=== PATIENT | female | born 1985 | race Caucasian/White ===

== ENCOUNTER → 2016-05-12 | Outpatient (CLI) | payer BC | LOC: MW.CHOBGYN 17:03 | PROVIDERS: ATTEND Obstetrics & Gynecology | DX: Z34.90 Encounter for supervision of normal pregnancy, unspecified, unspecified trimester (principal) | CPT/HCPCS: 87081 ==

== ENCOUNTER 2016-06-06 12:00 | Inpatient (IN) | payer BC ==
[2016-06-08] MEDS ORDERED: Sodium Chloride 0.9% 2.5 ML Syringe FLUSH PRN (05:53)
[2016-06-08] MEDS ORDERED: Sodium Chloride 0.9% 10 ML Syringe FLUSH PRN (05:53)
[2016-06-08] MEDS ORDERED: ceFAZolin 1 GM in Premix Bag 1 BAG IV ONE (05:53)
[2016-06-08] MEDS ORDERED: Lactated Ringers 1,000 ML IV SCH (06:00)
[2016-06-08] MEDS ORDERED: Citric Acid/Sodium Citrate Solution 30 ML Cup PO SCH (06:00)
[2016-06-08] MEDS ORDERED: Oxytocin 10 Units/1 ML SDV ONE ×3 (07:34→09:01)
[2016-06-08] MEDS ORDERED: Morphine PF 10 MG/10 ML SDV ONE (07:34)
--- NOTE | 2016-06-08 07:56 | PCM.PREANE ---
Preanesthetic Assessment - Procedure Proposed Procedure: repeat csection with SAB - Anesthesia/Transfusion/Family Hx Anesthesia History: Prior Anesthesia Without Reaction Family History of Anesthesia Reaction: No Transfusion History: No Prior Transfusion(s) - Review of Systems Other: Reports: None - Physical Assessment NPO Status Date: 06/07/00 NPO Status Time: 18:30 Pulse: 74 Respiratory Rate: 14 Blood Pressure: 115/82 Temperature: 97.8 C Height: 5 ft 1 in Weight: 57.606 kg ASA Class: 2 Mental Status: Alert & Oriented x3 Airway Class: Mallampati = 1 Dentition: Reports: Normal Dentition ROM/Head Extension: Full - Lab Values: Laboratory Last Values WBC 5.86 K/uL (4.0-11.0) 06/08/16 06:36 RBC 3.96 M/uL (4.30-5.90) L 06/08/16 06:36 Hgb 12.6 g/dL (12.0-16.0) 06/08/16 06:36 Hct 37.0 % (36.0-46.0) 06/08/16 06:36 MCV 93.4 fL (80.0-98.0) 06/08/16 06:36 MCH 31.8 pg (27.0-32.0) 06/08/16 06:36 MCHC 34.1 g/dL (31.0-37.0) 06/08/16 06:36 RDW Std Deviation 43.7 fl (28.0-62.0) 06/08/16 06:36 RDW Coeff of Linda 13 % (11.0-15.0) 06/08/16 06:36 Plt Count 217 K/uL (150-400) 06/08/16 06:36 MPV 10.50 fL (7.40-12.00) 06/08/16 06:36 Nucleated RBC % 0.0 /100WBC 06/08/16 06:36 Nucleated RBCs # 0 K/uL 06/08/16 06:36 Blood Type A POSITIVE 06/08/16 06:36 Antibody Screen NEGATIVE 06/08/16 06:36 - Allergies Allergies/Adverse Reactions: Allergies Allergy/AdvReac Type Severity Reaction Status Date / Time lamotrigine [From Lamictal] Allergy Hives Verified 06/01/16 14:18 - Blood Blood Available: Yes Product(s) Available: PRBC - Acknowledgements Anesthesia Type Planned: Spinal Pt an Appropriate Candidate for the Planned Anesthesia: Yes Alternatives and Risks of Anesthesia Discussed w Pt/Guardian: Yes Pt/Guardian Understands and Agrees with Anesthesia Plan: Yes PreAnesthesia Questionnaire Genitourinary History: Reports: None [employer]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) Neurological History: Reports: Seizure Other Neuro History: states has hx of epilepsy, last seizure was in 2016 Immunologic History: Reports: SLE Dermatologic History: Reports: Other (see below) Other Dermatologic History: states has a "form of lupus" - Infectious Disease History Infectious Disease History: Reports: Chicken pox - Past Surgical History Head Surgeries/Procedures: Reports: None HEENT Surgical History: Reports: Oral surgery Other HEENT Surgeries/Procedures: wisdom teeth extraction Female Surgical History: Reports: section - SUBSTANCE USE Smoking Status *Q: Never Smoker Second Hand Smoke Exposure: No Recreational Drug Use History: No - HOME MEDS Home Medications: Home Meds Aspirin [Halfprin] 81 mg PO DAILY 06/01/16 [History] Lacosamide [Vimpat] 100 mg PO BID 06/01/16 [History] Pnv No.122/Iron/Folic Acid [ Multi Tablet] 1 tab PO DAILY 06/01/16 [ History] levETIRAcetam [Keppra Xr] 1,500 mg PO BID 06/01/16 [History] - CURRENT (IN HOUSE) MEDS Current Meds: Current Medications Citric Acid/Sodium Citrate (Bicitra Solution) 30 ml PO .ONCE FRAN Last Admin: 06/08/16 07:47 Dose: 30 ml Lactated Ringer's (Ringers, Lactated) 1,000 mls @ 500 mls/hr IV .BOLUS FRAN Last Admin: 06/08/16 07:39 Dose: 500 mls/hr Sodium Chloride (Saline Flush) 10 ml FLUSH ASDIRECTED PRN PRN Reason: Keep Vein Open Sodium Chloride (Saline Flush) 2.5 ml FLUSH ASDIRECTED PRN PRN Reason: Keep Vein Open Discontinued Medications Cefazolin Sodium/Dextrose 1 gm (/ Premix) 50 mls @ 100 mls/hr IV ONETIME ONE Stop: 06/08/16 06:22 Morphine Sulfate (Duramorph Pf) Confirm Administered Dose 10 mg .ROUTE .STK-MED ONE Stop: 06/08/16 07:35 Oxytocin (Pitocin) Confirm Administered Dose 20 unit .ROUTE .STK-MED ONE Stop: 06/08/16 07:35 Preanesthetic Assessment - ANESTHESIA/TRANSFUSION/FAMILY HX Family History of Anesthesia Reaction: No - PHYSICAL ASSESSMENT Height: 5 ft 1 in Weight: 57.606 kg - LAB Values: Laboratory Last Values WBC 5.86 K/uL (4.0-11.0) 06/08/16 06:36 RBC 3.96 M/uL (4.30-5.90) L 06/08/16 06:36 Hgb 12.6 g/dL (12.0-16.0) 06/08/16 06:36 Hct 37.0 % (36.0-46.0) 06/08/16 06:36 MCV 93.4 fL (80.0-98.0) 06/08/16 06:36 MCH 31.8 pg (27.0-32.0) 06/08/16 06:36 MCHC 34.1 g/dL (31.0-37.0) 06/08/16 06:36 RDW Std Deviation 43.7 fl (28.0-62.0) 06/08/16 06:36 RDW Coeff of Linda 13 % (11.0-15.0) 06/08/16 06:36 Plt Count 217 K/uL (150-400) 06/08/16 06:36 MPV 10.50 fL (7.40-12.00) 06/08/16 06:36 Nucleated RBC % 0.0 /100WBC 06/08/16 06:36 Nucleated RBCs # 0 K/uL 06/08/16 06:36 Blood Type A POSITIVE 06/08/16 06:36 Antibody Screen NEGATIVE 06/08/16 06:36 - ALLERGIES Allergies/Adverse Reactions: Allergies Allergy/AdvReac Type Severity Reaction Status Date / Time lamotrigine [From Lamictal] Allergy Hives Verified 06/01/16 14:18
[2016-06-08] MEDS ORDERED: Ondansetron 4 MG/2 ML SDV ONE (08:37)
[2016-06-08] MEDS ORDERED: Octyl 2-Cyanoacrylate 1 Tube ONE (08:51)
[2016-06-08] MEDS ORDERED: Naloxone 0.4 MG/ML Syringe IVPUSH PRN (08:58)
[2016-06-08] MEDS ORDERED: diphenhydrAMINE 50 MG/ML SDV IVPUSH PRN ×2 (08:58→09:07)
[2016-06-08] MEDS ORDERED: Nalbuphine 10 MG/1 ML Vial IVPUSH PRN (08:58)
[2016-06-08] MEDS ORDERED: fentaNYL 100 MCG/2 ML SDV IVPUSH PRN (08:59)
[2016-06-08] MEDS ORDERED: Acetaminophen/oxyCODONE 325-5 MG Tab PO PRN ×2 (08:59→09:07)
[2016-06-08] MEDS ORDERED: Lanolin 100% Cream 7 GM Tube TOP PRN (09:07)
[2016-06-08] MEDS ORDERED: Bisacodyl 10 MG Supp RECTAL PRN (09:07)
[2016-06-08] MEDS ORDERED: Ondansetron 4 MG/2 ML SDV IV PRN (09:07)
--- NOTE | 2016-06-08 09:07 | PCM.LDHP ---
L&D History of Present Illness - General Date of Service: 06/08/16 Admit Problem/Dx: Patient Status Order with Admit Dx/Problem 06/08/16 05:53 Patient Status [ADT] Routine Admission Diagnosis/Problem Admission Diagnosis/Problem - planned Source of Information: Patient History Limitations: Reports: No limitations - History of Present Illness Improves with: Reports: None Worsens with: Reports: None Associated Symptoms: Reports: N - Related Data Allergies/Adverse Reactions: Allergies Allergy/AdvReac Type Severity Reaction Status Date / Time lamotrigine [From Lamictal] Allergy Hives Verified 06/01/16 14:18 Home Medications: Home Meds Aspirin [Halfprin] 81 mg PO DAILY 06/01/16 [History] Lacosamide [Vimpat] 100 mg PO BID 06/01/16 [History] Pnv No.122/Iron/Folic Acid [ Multi Tablet] 1 tab PO DAILY 06/01/16 [ History] levETIRAcetam [Keppra Xr] 1,500 mg PO BID 06/01/16 [History] Past Medical History Genitourinary History: Reports: 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) Neurological History: Reports: Seizure Other Neuro History: states has hx of epilepsy, last seizure was in 2016 Immunologic History: Reports: SLE Dermatologic History: Reports: Other (see below) Other Dermatologic History: states has a "form of lupus" - Infectious Disease History Infectious Disease History: Reports: Chicken pox - Past Surgical History Head Surgeries/Procedures: Reports: None HEENT Surgical History: Reports: Oral surgery Other HEENT Surgeries/Procedures: wisdom teeth extraction Female Surgical History: Reports: section Social & Family History - Family History OBGYN: Reports: Endocrine/Metabolic: Reports: Hypothyroidism Immunologic: Reports: SLE - Tobacco Use Smoking Status *Q: Never Smoker Second Hand Smoke Exposure: No - Caffeine Use Caffeine Use: Reports: None - Recreational Drug Use Recreational Drug Use: No H&P Review of Systems - Review of Systems: Review Of Systems: See Below General: Reports: no symptoms HEENT: Reports: no symptoms Pulmonary: Reports: No Symptoms Cardiovascular: Reports: no symptoms Gastrointestinal: Reports: No symptoms Genitourinary: Reports: no symptoms Musculoskeletal: Reports: no symptoms Skin: Reports: no symptoms Psychiatric: Reports: no symptoms Neurological: Reports: No Symptoms Hematologic/Lymphatic: Reports: no symptoms Immunologic: Reports: no symptoms L&D Exam - Exam Exam: See Below - Vital Signs Vital Signs: Last Vital Signs Temp 97.8 C H 06/08/16 07:56 Pulse 74 06/08/16 07:56 Resp 14 06/08/16 07:56 BP 115/82 06/08/16 07:56 Pulse Ox 99 06/08/16 07:50 Weight: 57.606 kg - OB Specific Contraction Intensity: Mild heart tones: present Presentation: Vertex - Patient Data Lab Results last 24 hrs: Laboratory Results - last 24 hr 06/08/16 06/08/16 Range/Units 06:36 06:36 WBC 5.86 (4.0-11.0) K/uL RBC 3.96 L (4.30-5.90) M/uL Hgb 12.6 (12.0-16.0) g/dL Hct 37.0 (36.0-46.0) % MCV 93.4 (80.0-98.0) fL MCH 31.8 (27.0-32.0) pg MCHC 34.1 (31.0-37.0) g/dL RDW Std Deviation 43.7 (28.0-62.0) fl RDW Coeff of Linda 13 (11.0-15.0) % Plt Count 217 (150-400) K/uL MPV 10.50 (7.40-12.00) fL Nucleated RBC % 0.0 /100WBC Nucleated RBCs # 0 K/uL Blood Type A POSITIVE Antibody Screen NEGATIVE Result Diagrams: 06/08/16 06:36 Problem List Initiated/Reviewed/Updated: Yes Orders Last 24hrs: Active Orders 24 hr Category Date Time Status Patient Status [ADT] Routine ADT 06/08/16 05:53 Active Bradycardia-Neuroaxis [employer] [RC] ROUTINE Care 06/08/16 08:57 Active Hypertension-Neuroaxis [employer] [RC] ROUTINE Care 06/08/16 08:57 Active Hypotension-Neuroaxis [employer] [RC] ROUTINE Care 06/08/16 08:57 Active Notify Provider Vital Signs [RC] PRN Care 06/08/16 05:55 Active Oxygen Therapy [RC] PER UNIT ROUTINE Care 06/08/16 08:58 Active Up ad Dianne [RC] ASDIRECTED Care 06/08/16 05:53 Active Vital Signs [RC] PER UNIT ROUTINE Care 06/08/16 05:53 Active Vital Signs [RC] Q1H Care 06/08/16 08:58 Active Acetaminophen/oxyCODONE [Percocet 325-5 MG] Med 06/08/16 08:59 Active 1 - 2 tab PO Q6H PRN Citric Acid/Sodium Citrate [Bicitra Solution] Med 06/08/16 06:00 Active 30 ml PO .ONCE Lactated Ringers [Ringers, Lactated] 1,000 ml Med 06/08/16 06:00 Active IV .BOLUS Nalbuphine [Nubain] Med 06/08/16 08:58 Ordered 5 mg IVPUSH Q3H PRN Naloxone [Narcan] Med 06/08/16 08:58 Ordered 0.1 mg IVPUSH ONETIME PRN Sodium Chloride 0.9% [Saline Flush] Med 06/08/16 05:53 Active 10 ml FLUSH ASDIRECTED PRN Sodium Chloride 0.9% [Saline Flush] Med 06/08/16 05:53 Active 2.5 ml FLUSH ASDIRECTED PRN diphenhydrAMINE [Benadryl] Med 06/08/16 08:58 Ordered 25 mg IVPUSH Q4H PRN fentaNYL [Sublimaze] Med 06/08/16 08:59 Ordered 25 - 50 mcg IVPUSH Q30M PRN AN Neuroaxis Duramorph Precaution Reflex [OM.PC] PER Oth 06/08/16 09:00 Ordered UNIT ROUTINE AN Neuroaxis Duramorph Precaution Reflex [OM.PC] PER Oth 06/09/16 09:00 Ordered UNIT ROUTINE Peripheral IV Insertion Adult [OM.PC] Routine Oth 06/08/16 05:53 Ordered Schedule Procedure [COMM] Per Unit Routine Oth 06/08/16 05:53 Ordered Resuscitation Status Routine Resus Stat 06/08/16 05:53 Ordered Medication Orders Citric Acid/Sodium Citrate (Bicitra Solution) 30 ml PO .ONCE FRAN Last Admin: 06/08/16 07:47 Dose: 30 ml Diphenhydramine HCl (Benadryl) 25 mg IVPUSH Q4H PRN PRN Reason: Itching Stop: 06/09/16 08:58 Fentanyl (Sublimaze) 25 - 50 mcg IVPUSH Q30M PRN PRN Reason: Pain Lactated Ringer's (Ringers, Lactated) 1,000 mls @ 500 mls/hr IV .BOLUS FRAN Last Infusion: 06/08/16 08:48 Dose: 0 mls/hr Admin: 06/08/16 07:39 Dose: 500 mls/hr Nalbuphine HCl (Nubain) 5 mg IVPUSH Q3H PRN PRN Reason: Pruritis Stop: 06/09/16 08:58 Naloxone HCl (Narcan) 0.1 mg IVPUSH ONETIME PRN PRN Reason: Other Stop: 06/09/16 08:58 Oxycodone/Acetaminophen (Percocet 325-5 Mg) 1 - 2 tab PO Q6H PRN PRN Reason: Pain Stop: 06/10/16 14:00 Sodium Chloride (Saline Flush) 10 ml FLUSH ASDIRECTED PRN PRN Reason: Keep Vein Open Sodium Chloride (Saline Flush) 2.5 ml FLUSH ASDIRECTED PRN PRN Reason: Keep Vein Open Assessment/Plan Comment:: Term admited for elective repeat c/Section.
--- NOTE | 2016-06-08 09:11 | PCM.OPNOTE ---
- General Post-Op/Procedure Note Date of Surgery/Procedure: 06/08/16 Operative Procedure(s): Repeat C/section Post-Op Diagnosis: Same Anesthesia Technique: Spinal Primary Surgeon: Xavier Fernandez E Commerce Analyst: Olivia Sandhu EBL in mLs: 800 Complications: None Condition: Good
--- NOTE | 2016-06-08 10:01 | PCM.POSTAN ---
POST ANESTHESIA ASSESSMENT - MENTAL STATUS Mental Status: alert, oriented - RESPIRATORY Respiratory Status: respiratory rate WNL, airway patent, O2 saturation stable - CARDIOVASCULAR CV Status: pulse rate WNL, blood pressure stable - GASTROINTESTINAL GI Status: no symptoms - PAIN Pain Score: 0 - POST OP HYDRATION Hydration Status: adequate & stable
--- NOTE | 2016-06-08 12:34 | OR ---
SURGEON: Xavier Fernandez MD DATE OF PROCEDURE: PREOPERATIVE DIAGNOSIS: Term , previous section, admitted for elective repeat section. POSTOPERATIVE DIAGNOSIS: Term , previous section, admitted for elective repeat section. OPERATION PERFORMED: Repeat low transverse section. BRIDGE MAINTAINER: MARCO Loo. ANESTHESIA: Spinal by Alanis Nichols and Dr. Jaramillo. ESTIMATED BLOOD LOSS: 800 mL. COMPLICATIONS: None. FINDINGS: Viable male fetus. score reported to be 8 and 9. The weight is not available at this time. Normal uterus, tubes, and ovaries. INDICATION: The patient is 30. She had previous section. She is followed in our clinic without any problem. She is admitted for elective repeat section. PROCEDURE IN DETAIL: The patient was brought to the OR, properly identified, and after adequate level of spinal anesthesia, the patient was prepped and draped in sterile fashion as usual. Low transverse Pfannenstiel skin incision was done through old scar. The Darcie's fascia and rectus fascia were opened in direction of the incision. The 2 recti muscles were and peritoneal cavity was entered. Bladder flap was raised in the usual manner pushing the bladder away from the lower uterine segment. Low transverse uterine incision was done, extended manually with the hand, fetus was delivered, handed to the nurse resuscitator, who was present at the time of the delivery. The fetus was male, cried immediately. score later on reported to be 8 and 9. Placenta delivered spontaneous, complete, and intact, and repair of the lower uterine segment was done with 2-0 Vicryl continuous interlocking in 2 layers. Reperitonealization was done with 3- 0 Vicryl continuous. The peritoneal cavity was evacuated completely from all blood and blood clot and closed with 3-0 Vicryl continuous. The rectus fascia was closed with #1 PDS continuous, Darcie's fascia was closed with 3-0 Vicryl continuous, and the skin was closed in a subcuticular manner with 5-0, and Dermabond. Instrument and sponge count were correct. The patient tolerated the procedure well, went to recovery room in stable general condition. MALIA / ANDREW /[id number]
[2016-06-08] MEDS: Ketorolac 30 MG/ML SDV IVPUSH SCH ×2 (16:03→21:43)
[2016-06-08] MEDS: Lactated Ringers 1,000 ML IV SCH (16:04)
[2016-06-08] MEDS: Docusate Sodium 100 MG Cap PO SCH (21:42)
[2016-06-08] MEDS: levETIRAcetam 500 MG Tab PO SCH (21:43)
[2016-06-09] MEDS: Lactated Ringers 1,000 ML IV SCH (00:14)
[2016-06-09] MEDS: Ketorolac 30 MG/ML SDV IVPUSH SCH ×3 (03:42→20:50)
[2016-06-09] MEDS: levETIRAcetam 500 MG Tab PO SCH ×2 (09:17→20:49)
[2016-06-09] MEDS: Docusate Sodium 100 MG Cap PO SCH ×2 (09:17→20:49)
--- NOTE | 2016-06-09 09:35 | PCM48HPAN ---
Post Anesthesia Note - EVALUATION WITHIN 48HRS OF ANESTHETIC Vital Signs in Normal Range: Yes Patient Participated in Evaluation: Yes Respiratory Function Stable: Yes Airway Patent: Yes Cardiovascular Function Stable: Yes Hydration Status Stable: Yes Pain Control Satisfactory: Yes Nausea and Vomiting Control Satisfactory: Yes Mental Status Recovered: Yes
--- NOTE | 2016-06-09 10:38 | PCM.PNPP ---
- General Info Date of Service: 06/09/16 Functional Status: Reports: pain controlled - Review of Systems General: Reports: No Symptoms HEENT: Reports: no symptoms Pulmonary: Reports: no symptoms Cardiovascular: Reports: No Symptoms Gastrointestinal: Reports: No symptoms Genitourinary: Reports: no symptoms Musculoskeletal: Reports: no symptoms Skin: Reports: no symptoms Neurological: Reports: No Symptoms Psychiatric: Reports: no symptoms - General Info Date of Service: 06/09/16 - Patient Data Vital Signs - most recent: Last Vital Signs Temp 36.3 C 06/09/16 08:20 Pulse 75 06/09/16 08:20 Resp 16 06/09/16 08:20 BP 110/74 06/09/16 08:20 Pulse Ox 100 06/09/16 08:20 Weight - most recent: 57.606 kg I&O - last 24 hours: Intake & Output 06/08/16 06/09/16 06/09/16 22:59 06:59 14:59 Intake Total 1432 Output Total 275 1075 Balance -275 357 Lab Results - last 24 hrs: Laboratory Results - last 24 hr 06/09/16 Range/Units 04:45 Hgb 9.4 L (12.0-16.0) g/dL Hct 27.1 L (36.0-46.0) % Med Orders - Current: Current Medications Bisacodyl (Dulcolax) 10 mg RECTAL .ONCE PRN PRN Reason: Constipation Citric Acid/Sodium Citrate (Bicitra Solution) 30 ml PO .ONCE [facility] Last Admin: 06/08/16 07:47 Dose: 30 ml Diphenhydramine HCl (Benadryl) 25 mg IVPUSH Q6H PRN PRN Reason: Itching or Nausea Docusate Sodium (Colace) 100 mg PO BID [facility] Last Admin: 06/09/16 09:17 Dose: 100 mg Emollient Ointment (Lansinoh Hpa) 0 gm TOP ASDIRECTED PRN PRN Reason: Sore Nipples Fentanyl (Sublimaze) 25 - 50 mcg IVPUSH Q30M PRN PRN Reason: Pain Lactated Ringer's (Ringers, Lactated) 1,000 mls @ 500 mls/hr IV .BOLUS [facility] Last Infusion: 06/08/16 08:48 Dose: Infused Lactated Ringer's (Ringers, Lactated) 1,000 mls @ 125 mls/hr IV ASDIRECTED [facility] Last Admin: 06/09/16 00:14 Dose: 125 mls/hr Ibuprofen (Motrin) 800 mg PO Q8H PRN PRN Reason: mild pain or fever Levetiracetam (Keppra) 1,500 mg PO BID [facility] Last Admin: 06/09/16 09:17 Dose: 1,500 mg Ondansetron HCl (Zofran) 4 mg IV Q4H PRN PRN Reason: Nausea/Vomiting Oxycodone/Acetaminophen (Percocet 325-5 Mg) 1 - 2 tab PO Q6H PRN PRN Reason: Pain Stop: 06/10/16 14:00 Oxycodone/Acetaminophen (Percocet 325-5 Mg) 1 tab PO Q4H PRN PRN Reason: Pain (moderate 4-6) Oxycodone/Acetaminophen (Percocet 325-5 Mg) 2 tab PO Q4H PRN PRN Reason: Pain (moderate 4-6) Vimpat 100 Mg 1 each PO BID [facility] Last Admin: 06/09/16 09:25 Dose: 1 each Sodium Chloride (Saline Flush) 10 ml FLUSH ASDIRECTED PRN PRN Reason: Keep Vein Open Sodium Chloride (Saline Flush) 2.5 ml FLUSH ASDIRECTED PRN PRN Reason: Keep Vein Open Discontinued Medications Diphenhydramine HCl (Benadryl) 25 mg IVPUSH Q4H PRN PRN Reason: Itching Stop: 06/09/16 08:58 Cefazolin Sodium/Dextrose 1 gm (/ Premix) 50 mls @ 100 mls/hr IV ONETIME ONE Stop: 06/08/16 06:22 Last Admin: 06/08/16 08:47 Dose: Not Given Cefazolin Sodium/Dextrose (Ancef) Confirm Administered Dose 50 mls @ as directed .ROUTE .STK-MED ONE Stop: 06/08/16 08:07 Ketorolac Tromethamine (Toradol) 30 mg IVPUSH Q6H [facility] Stop: 06/09/16 09:16 Last Admin: 06/09/16 09:18 Dose: 30 mg Morphine Sulfate (Duramorph Pf) Confirm Administered Dose 10 mg .ROUTE .STK-MED ONE Stop: 06/08/16 07:35 Nalbuphine HCl (Nubain) 5 mg IVPUSH Q3H PRN PRN Reason: Pruritis Stop: 06/09/16 08:58 Naloxone HCl (Narcan) 0.1 mg IVPUSH ONETIME PRN PRN Reason: Other Stop: 06/09/16 08:58 Octyl Cyanoacrylate (Dermabond Advance) Confirm Administered Dose 1 applic .ROUTE .STK-MED ONE Stop: 06/08/16 08:52 Ondansetron HCl (Zofran) Confirm Administered Dose 4 mg .ROUTE .STK-MED ONE Stop: 06/08/16 08:38 Oxytocin (Pitocin) Confirm Administered Dose 20 unit .ROUTE .STK-MED ONE Stop: 06/08/16 07:35 Oxytocin (Pitocin) Confirm Administered Dose 10 unit .ROUTE .STK-MED ONE Stop: 06/08/16 09:02 Oxytocin (Pitocin) Confirm Administered Dose 10 unit .ROUTE .STK-MED ONE Stop: 06/08/16 09:02 - Infant Interaction Disposition, : [place] in Room with Family Interaction: Holding Infant Infant Feeding: Attempted ; Nursed Fair/Poor Support Person: - Recovery Exam Fundal Tone: Firm Fundal Level: 1 Fingerbreadths Below Umbilicus Fundal Placement: Midline Lochia Amount: Scant Lochia Color: Rubra/Red Perineum Description: Intact, Minimal Bruising/Swelling Episiotomy/Laceration: None Bladder Status: Indwelling Catheter in Place Urinary Elimination: Indwelling Catheter - Exam General: alert, oriented HEENT: Pupils equal Neck: supple Lungs: Clear to auscultation, Normal respiratory effort Cardiovascular: Regular Rate, Regular Rhythm Abdomen: bowel sounds present, soft, no tenderness, no distension Extremities: no edema Skin: warm, dry, intact Wound/Incisions: healing well Neurological: no new focal deficit Psy/Mental Status: alert, normal affect, normal mood - Problem List Review Problem List Initiated/Reviewed/Updated: Yes - My Orders Last 24 Hours: My Active Orders 06/08/16 11:08 May Take Own Home Medications [OM.PC] Routine 06/08/16 21:00 Docusate Sodium [Colace] 100 mg PO BID Patient's Own Medication [Ptom] 1 each PO BID levETIRAcetam [Keppra] 1,500 mg PO BID 06/09/16 Breakfast Regular Diet [DIET] - Plan Plan:: Term admited for elective repeat c/Section. Status post section postoperative day #1 she is doing well today on regular diet tolerated very well normal lochia plan to discharge home in a.m.
[2016-06-09] MEDS: Ibuprofen 800 MG Tab PO PRN ×2 (14:25→23:57)
[2016-06-09] MEDS: Acetaminophen/oxyCODONE 325-5 MG Tab PO PRN (17:39)
[2016-06-10] MEDS: Acetaminophen/oxyCODONE 325-5 MG Tab PO PRN ×2 (04:50→09:03)
[2016-06-10 08:41] VITALS: BP 98/57
[2016-06-10] MEDS: Docusate Sodium 100 MG Cap PO SCH (08:55)
[2016-06-10] MEDS: levETIRAcetam 500 MG Tab PO SCH (08:55)
--- NOTE | 2016-06-10 09:13 | PCM.DCSUM1 ---
Discharge Summary - Hospital Course Free Text/Narrative:: Discharge home with . Follow up 10 days for incision check and 6 weeks for post exam or sooner if needed. - Discharge Data Discharge Date: 06/10/16 Discharge Disposition: Home, Self-Care 01 Condition: Good - Patient Summary/Data Operative Procedure(s) Performed: Repeat C/section - Patient Instructions Diet: Usual Diet as Tolerated Activity: As Tolerated, Rest and Relax Today Driving: Do Not Drive (for a few days) Showering/Bathing: July Shower Wound/Incision Care: Keep Operative Site/Wound Site Clean and Dry Notify Provider of: Fever, Increased Pain, Swelling and Redness, Drainage, Nausea and/or Vomiting - Discharge Plan Prescriptions/Med Rec: Acetaminophen/oxyCODONE [Percocet 325-5 MG] 2 tab PO Q4H PRN #30 tablet PRN Reason: Pain Home Medications: Home Meds Aspirin [Halfprin] 81 mg PO DAILY 06/01/16 [History] Lacosamide [Vimpat] 100 mg PO BID 06/01/16 [History] Pnv No.122/Iron/Folic Acid [ Multi Tablet] 1 tab PO DAILY 06/01/16 [ History] levETIRAcetam [Keppra Xr] 1,500 mg PO BID 06/01/16 [History] Acetaminophen/oxyCODONE [Percocet 325-5 MG] 2 tab PO Q4H PRN #30 tablet [Rx] Referrals: [facility] [Outside] Xavier Fernandez MD [Physician] - (1 week- SundayJune 20 @ 10:45am w/ Dr. Fernandez 6 week- July 24 @ 10:45am w/ Dr. Fernandez) - General Info Date of Service: 06/10/16 Admission Dx/Problem (Free Text: Patient Status Order with Admit Dx/Problem 06/08/16 05:53 Patient Status [ADT] Routine Admission Diagnosis/Problem Admission Diagnosis/Problem - planned Functional Status: Reports: pain controlled, tolerating diet, ambulating, urinating - Review of Systems General: Reports: No Symptoms HEENT: Reports: no symptoms Pulmonary: Reports: no symptoms Cardiovascular: Reports: No Symptoms Gastrointestinal: Reports: No symptoms Genitourinary: Reports: no symptoms Musculoskeletal: Reports: no symptoms Skin: Reports: no symptoms Neurological: Reports: No Symptoms Psychiatric: Reports: no symptoms - Patient Data Vitals - Most Recent: Last Vital Signs Temp 36.5 C 06/10/16 08:00 Pulse 67 06/10/16 08:00 Resp 12 06/10/16 08:00 BP 98/57 L 06/10/16 08:00 Pulse Ox 97 06/10/16 08:00 Weight - Most Recent: 57.606 kg Med Orders - Current: Current Medications Bisacodyl (Dulcolax) 10 mg RECTAL .ONCE PRN PRN Reason: Constipation Citric Acid/Sodium Citrate (Bicitra Solution) 30 ml PO .ONCE [facility] Last Admin: 06/08/16 07:47 Dose: 30 ml Diphenhydramine HCl (Benadryl) 25 mg IVPUSH Q6H PRN PRN Reason: Itching or Nausea Docusate Sodium (Colace) 100 mg PO BID [facility] Last Admin: 06/10/16 08:55 Dose: 100 mg Emollient Ointment (Lansinoh Hpa) 0 gm TOP ASDIRECTED PRN PRN Reason: Sore Nipples Fentanyl (Sublimaze) 25 - 50 mcg IVPUSH Q30M PRN PRN Reason: Pain Lactated Ringer's (Ringers, Lactated) 1,000 mls @ 500 mls/hr IV .BOLUS [facility] Last Infusion: 06/08/16 08:48 Dose: Infused Lactated Ringer's (Ringers, Lactated) 1,000 mls @ 125 mls/hr IV ASDIRECTED [facility] Last Admin: 06/09/16 00:14 Dose: 125 mls/hr Ibuprofen (Motrin) 800 mg PO Q8H PRN PRN Reason: mild pain or fever Last Admin: 06/09/16 23:57 Dose: 800 mg Levetiracetam (Keppra) 1,500 mg PO BID [facility] Last Admin: 06/10/16 08:55 Dose: 1,500 mg Ondansetron HCl (Zofran) 4 mg IV Q4H PRN PRN Reason: Nausea/Vomiting Oxycodone/Acetaminophen (Percocet 325-5 Mg) 1 - 2 tab PO Q6H PRN PRN Reason: Pain Stop: 06/10/16 14:00 Last Admin: 06/09/16 23:58 Dose: 1 tab Oxycodone/Acetaminophen (Percocet 325-5 Mg) 1 tab PO Q4H PRN PRN Reason: Pain (moderate 4-6) Last Admin: 06/10/16 09:03 Dose: 1 tab Oxycodone/Acetaminophen (Percocet 325-5 Mg) 2 tab PO Q4H PRN PRN Reason: Pain (moderate 4-6) Vimpat 100 Mg 1 each PO BID [facility] Last Admin: 06/10/16 09:03 Dose: 1 each Sodium Chloride (Saline Flush) 10 ml FLUSH ASDIRECTED PRN PRN Reason: Keep Vein Open Sodium Chloride (Saline Flush) 2.5 ml FLUSH ASDIRECTED PRN PRN Reason: Keep Vein Open Discontinued Medications Diphenhydramine HCl (Benadryl) 25 mg IVPUSH Q4H PRN PRN Reason: Itching Stop: 06/09/16 08:58 Cefazolin Sodium/Dextrose 1 gm (/ Premix) 50 mls @ 100 mls/hr IV ONETIME ONE Stop: 06/08/16 06:22 Last Admin: 06/08/16 08:47 Dose: Not Given Cefazolin Sodium/Dextrose (Ancef) Confirm Administered Dose 50 mls @ as directed .ROUTE .STK-MED ONE Stop: 06/08/16 08:07 Ketorolac Tromethamine (Toradol) 30 mg IVPUSH Q6H [facility] Stop: 06/09/16 09:16 Last Admin: 06/09/16 20:50 Dose: Not Given Morphine Sulfate (Duramorph Pf) Confirm Administered Dose 10 mg .ROUTE .STK-MED ONE Stop: 06/08/16 07:35 Nalbuphine HCl (Nubain) 5 mg IVPUSH Q3H PRN PRN Reason: Pruritis Stop: 06/09/16 08:58 Naloxone HCl (Narcan) 0.1 mg IVPUSH ONETIME PRN PRN Reason: Other Stop: 06/09/16 08:58 Octyl Cyanoacrylate (Dermabond Advance) Confirm Administered Dose 1 applic .ROUTE .STK-MED ONE Stop: 06/08/16 08:52 Ondansetron HCl (Zofran) Confirm Administered Dose 4 mg .ROUTE .STK-MED ONE Stop: 06/08/16 08:38 Oxytocin (Pitocin) Confirm Administered Dose 20 unit .ROUTE .STK-MED ONE Stop: 06/08/16 07:35 Oxytocin (Pitocin) Confirm Administered Dose 10 unit .ROUTE .STK-MED ONE Stop: 06/08/16 09:02 Oxytocin (Pitocin) Confirm Administered Dose 10 unit .ROUTE .STK-MED ONE Stop: 06/08/16 09:02 - Exam General: Reports: alert, cooperative, no acute distress Lungs: Reports: Clear to auscultation, Normal respiratory effort Cardiovascular: Reports: Regular Rate, Regular Rhythm Abdomen: Reports: bowel sounds present, soft, no tenderness, no distension (Female) Exam: Vaginal bleeding (lochia small) Rectal (Female) Exam: Deferred Back Exam: Reports: full range of motion Extremities: Reports: no edema, normal pulses Skin: Reports: warm, dry, intact Wound/Incisions: Reports: healing well, no drainage Neurological: Reports: no new focal deficit, normal speech, normal tone Psy/Mental Status: Reports: alert, normal affect, normal mood *Q Meaningful Use (DIS) - VTE *Q VTE Criteria *Q: - Stroke *Q Stroke Criteria *Q: - AMI *Q AMI Criteria *Q:
== END 2016-06-10 11:45 | disposition home or self-care (01) | DRG 540 ==
LOC: MW.OB 06-08 05:26
PROVIDERS: ADMIT Obstetrics & Gynecology; ATTEND Obstetrics & Gynecology
PROC: 10D00Z1 Extraction of Products of Conception, Low, Open Approach (ICD-10-PCS; principal; 2016-06-08)
DX: O34.211 Maternal care for low transverse scar from previous cesarean delivery (principal); Z3A.39 39 weeks gestation of pregnancy; Z37.0 Single live birth
CPT/HCPCS: 01961; 36415; 59025; 85014; 85018; 85027; 86850; 86900; 86901; A9270-GY; J0690; J1885; J2270; J2405; J2590; J7120

== ENCOUNTER → 2016-06-23 | Outpatient (CLI) | payer BC | LOC: MW.CHFP 13:40 | PROVIDERS: ATTEND Physician Assistant | DX: I26.99 Other pulmonary embolism without acute cor pulmonale (principal) | CPT/HCPCS: 36415; 81241; 81291; 83090; 85301; 85302; 85305; 85598; 85610; 85611; 85613; 85670; 85730; 86146; 86147 ==

== ENCOUNTER → 2016-07-18 | Outpatient (CLI) | payer BC ==
[2016-07-18 12:57] LABS: CHLORIDE,CL 104 mmol/L (98-110); SODIUM,NA 138 mmol/L (136-146)
== END ==
LOC: MW.CHNEURO 11:52
PROVIDERS: ATTEND Psychiatry & Neurology Neuromuscular Medicine
DX: G40.219 Localization-related (focal) (partial) symptomatic epilepsy and epileptic syndromes with complex partial seizures, intractable, without status epilepticus (principal); I26.99 Other pulmonary embolism without acute cor pulmonale
CPT/HCPCS: 36415; 80053; 80375; 85025; 85730